=== PATIENT | male | born 1950 | race Caucasian/White ===

== ENCOUNTER 2019-10-15 11:52 | Outpatient (CLI) | payer MEDICARE, OTHER, SELFPAY ==
--- NOTE | ~2019-10-15 | XR_ITS ---
EXAMINATION: XR abdomen/kub 1V INDICATION: Malignant neoplasm with hormone sensitive status TECHNIQUE: Supine views of the abdomen were obtained on 2 radiographs. COMPARISON: 07/18/2018 FINDINGS: Bowel contents project over the kidneys limiting sensitivity for renal stones. There appear to be clustered 3 mm stones in the lower pole of the left kidney. No stones are identified in the ri ght kidney, the expected courses of the ureters, or in the bladder. There are phleboliths of the left pelvis. Surgical clips are noted in the midline pelvis. A moderate volume of colonic stool is presen t. A lamellated calcification of the right upper quadrant likely reflects cholelithiasis. There is mi ld bilateral hip osteoarthritis. IMPRESSION: 1. Likely tiny stones in the lower pole of the left kidney. Reviewed, dictated and finalized at location A.
== END 2019-10-15 11:53 | disposition home or self-care (01) ==
PROVIDERS: Visit Provider Urology
DX: Z19.1 Hormone sensitive malignancy status (principal)
CPT/HCPCS: 74018

== ENCOUNTER 2019-11-24 14:46 | Outpatient (CLI) | payer MEDICARE, OTHER, SELFPAY ==
[2019-11-26 20:39] LABS: PSA, Free 0.23 ng/mL; PSA, Total 1.4 ng/mL (<=4.0)
== END 2019-11-24 14:47 | disposition home or self-care (01) ==
LOC: ANHLAB 14:50
PROVIDERS: Visit Provider Radiology Radiation Oncology
DX: C61 Malignant neoplasm of prostate (principal)
CPT/HCPCS: 36415; 84153; 84154

== ENCOUNTER 2020-11-01 10:43 | Outpatient (CLI) | payer MEDICARE, OTHER, SELFPAY ==
[2020-11-01 17:49] LABS: Prostate Specific Antigen 1.1 ng/mL (< OR = 4.0)
== END 2020-11-01 10:44 | disposition home or self-care (01) ==
LOC: ANHLAB 10:46
PROVIDERS: Visit Provider Radiology Radiation Oncology
DX: Z85.46 Personal history of malignant neoplasm of prostate (principal)
CPT/HCPCS: 36415; 84153

== ENCOUNTER → 2021-03-01 08:27 | Outpatient (CLI) | payer MEDICARE, OTHER, SELFPAY ==
--- NOTE | ~2021-03-01 | XR_ITS ---
EXAMINATION: XR abdomen/kub 1V EXAM DATE: 03/01/2021 09:16 INDICATION: Calculus of kidney . Prostate cancer. TECHNIQUE: Frontal projection(s) of the abdomen for interpretation. Comparison is made to prior exami nation from 10/15/2019. FINDINGS: There is bowel gas are aligned both renal contours. There is punctate calcification overly ing bowel gas and lower pole left kidney which could be nephrolithiasis. Moderate amount of colonic s tool. No small bowel obstruction. There is round 8 to 10 mm sclerotic focus right iliac crest, has been stable going back to 2018, prob ably bone island. Patient also had negative bone scan in 2018. IMPRESSION: 1. Possible punctate left nephrolithiasis. Reviewed, dictated and finalized at location B. ER [employer]
== END ==
PROVIDERS: PCP Physician Assistant; Visit Provider Urology
DX: N20.0 Calculus of kidney (principal)
CPT/HCPCS: 74018

== ENCOUNTER 2022-12-20 14:03 | Outpatient (CLI) | payer MEDICARE, OTHER, SELFPAY ==
--- NOTE | ~2022-12-20 | PE_ITS ---
EXAMINATION: PET_PETPSMAST_PT DATE: 12/20/2022 17:00 INDICATION: Prostate cancer TECHNIQUE: 8.114 mCi of pipflufolastat F-18 (18-F-DCFPyL) was administered i.v. Low dose computed to mography (CT) images were acquired from the base of the brain to the base of the brain to the proxima l thighs for attenuation correction and anatomic localization. Positron emission tomography (PET) maggy ges were acquired in the same distribution beginning 107 minutes after injection. Images including fu sed PET/CT images were reconstructed in axial, coronal, and sagittal planes. Automated exposure contr ol technique was employed. The dose-length product was 718.87mGy-cm. COMPARISON: None FINDINGS: Head/neck: Typical pattern of symmetric physiologic increased activity in the lacrimal, parotid and submandibula r glands as well as along the mucosa of the nasal and oral cavities, the simon-, naso- and hypopharynx, the glottis and esophagus. No pathologically enlarged cervical lymphadenopathy or suspicious foci of increased uptake in the visualized head or neck. Chest: Mild dependent atelectasis in bilateral lower lobes. No suspicious pulmonary nodules, pneumonia, pulm onary edema or pleural effusion. Heart size is normal. Atherosclerotic coronary artery calcification. No pericardial effusion. Thoracic aorta is normal in caliber. No pathologically enlarged thoracic ly mphadenopathy. Abdomen/pelvis/proximal thighs: Physiologic renal accumulation and excretion of activity in the kidneys, bladder and along portions o f ureters. Bilateral nonobstructing nephrolithiasis with a few stones in both kidneys, all measuring less than 3 mm. Small low-attenuation photopenic defect in segment 8 of the liver most likely represe nting a renal cyst. Otherwise normal degree and slightly heterogenous pattern of increased uptake thr oughout the liver and spleen without radiologic correlate or dominant PSMA avid lesion. Several calci fied gallstones in the otherwise normal-appearing gallbladder with no wall thickening or pericholecys tic infiltrate stranding to suggest acute cholecystitis. The pancreas and bilateral adrenal glands ar e normal. Moderate uptake scattered throughout the bowels with typical duodenal and proximal jejunal predominance and without radiologic correlate, also likely physiologic. Normal appendix. Bladder is n ormal. A few metallic densities likely representing surgical clips in the central aspect of the small prostate suggesting prior at least partial prostatectomy. There is a subcentimeter focus of increase d activity without radiologic correlate on CT in the anterior inferior prostate slightly to the right of midline with maximal SUV of 11.9 which particularly in the setting of rising PSA level is concern ing include new or recurrent prostate cancer. Differential would include ureter activity in the prost atic portion of the urethra over the location appears more eccentric than the expected position of th e urethra. Small bilateral hydroceles. Additional subcentimeter foci of mild increased uptake along s lucia both the left and right testis possibly within the epididymides each with maximal SUV of 4.6 whic h remains significantly lower than the activity in the liver. No other abnormal foci of increased upt sedrick or pathologically enlarged lymphadenopathy in the abdomen, pelvis or proximal thighs. Musculoskeletal: 11 mm sclerotic lesion in the right innominate bone which is unchanged since the prior CT and is with out evident PSMA activity most likely representing a bone island. There are few additional unchanged scattered tiny small sclerotic likely bone islands without corresponding PSMA activity in the pelvis and at the left femoral head. No other suspicious lytic, blastic or PSMA avid bone lesions. IMPRESSION: 1. Postoperative change of prior at least partial prostatectomy with small focus of increased PSMA ac tivity at the right anteroinferior as
== END 2022-12-20 14:04 | disposition home or self-care (01) ==
PROVIDERS: PCP Physician Assistant; Visit Provider Urology
DX: C61 Malignant neoplasm of prostate (principal); K80.20 Calculus of gallbladder without cholecystitis without obstruction
CPT/HCPCS: 78815; A9595